=== PATIENT | female | born 1985 | race Hispanic/Latino ===

== ENCOUNTER 2018-12-19 04:37 | Observation (INO) | payer OTHER, MEDICAID ==
[~2018-12-19] VITALS: Ht 157.5 cm; Wt 99.3 kg
[2018-12-19] MEDS ORDERED: LACTATED RINGERS 1000ML 1,000 ML IV SCH (05:30)
[2018-12-19 05:47] LABS: BASOPHILS % (AUTO) 1.4 % (0.0-5.0); EOSINOPHILS % (AUTO) 2.7 % (0.0-8.0); HEMATOCRIT 37.4 % (36-48); LYMPHOCYTES % (AUTO) 43.1 % (21.0-51.0); MEAN CORPUSCULAR HEMOGLOBIN 28.8 pg (27.0-33.0); MEAN CORPUSCULAR HGB CONC 34.3 g/dL (32.0-36.0); NEUTROPHILS % (AUTO) 43.8 % (40.0-77.0); NUCLEATED RED BLOOD CELLS 0.1 % (0.0-0.19); PLATELET COUNT (AUTO) 188 K/uL (130-400); RED BLOOD CELL COUNT(AUTO) 4.45 MIL/uL (4.00-5.50); RED CELL DISTRIBUTION WIDTH 13.3 % (11.0-15.5); WHITE BLOOD COUNT (AUTO) 5.9 K/uL (4.8-10.8)
[2018-12-19] MEDS ORDERED: SUCCINYLCHOLINE 200MG/10ML SYR ONE (06:26)
[2018-12-19] MEDS ORDERED: MIDAZOLAM HCL 1 MG/ML 2ML VIAL ONE (06:26)
[2018-12-19] MEDS ORDERED: LIDOCAINE PF 2% 5ML ABBOJECT ONE (06:26)
[2018-12-19] MEDS ORDERED: PROPOFOL 10 MG/ML 20ML VIAL IV ONE ×2 (06:27→06:41)
[2018-12-19] MEDS ORDERED: FENTANYL CITRATE PF 50 MCG/1 ML 2ML VIAL ONE (06:27)
[2018-12-19] MEDS ORDERED: ROCURONIUM 10MG/1ML SYR 10 MG/ML ML ONE (06:28)
[2018-12-19] MEDS ORDERED: ONDANSETRON HCL 4 MG/2 ML VIAL ONE (06:29)
[2018-12-19] MEDS ORDERED: OXYTOCIN 10 USP UNITS/ML ONE (06:39)
[2018-12-19] MEDS ORDERED: OXYTOCIN-LR 20 UNITS/1000 ML 1,000 ML IV ONE (07:02)
[2018-12-19] MEDS ORDERED: MEPERIDINE-PF 25 MG/ML SYG ONE (07:22)
== END 2018-12-19 10:39 | disposition home or self-care (01) ==
LOC: SUH 04:37 → LDH 05:07
PROVIDERS: ADMIT Obstetrics & Gynecology; ATTEND Obstetrics & Gynecology
DX: O02.1 Missed abortion (principal); O99.211 Obesity complicating pregnancy, first trimester; Z3A.13 13 weeks gestation of pregnancy
CPT/HCPCS: 36415; 59820; 85025; 86850; 86900; 86901; A4606; G0378 ×6; J0330; J2001; J2175; J2250; J2405; J2590 ×2; J2704 ×2; J3010; J7120

== ENCOUNTER → 2024-05-16 | Outpatient (CLI) | payer OTHER | END | disposition home or self-care (01) | LOC: RAH 09:54 | PROVIDERS: ATTEND Obstetrics & Gynecology | DX: Z12.31 Encounter for screening mammogram for malignant neoplasm of breast (principal); R92.323 Mammographic fibroglandular density, bilateral breasts | CPT/HCPCS: 77067 ==